=== PATIENT | female | born 1940 | race Caucasian/White ===

== ENCOUNTER 2022-04-01 12:42 | Outpatient (CLI) | payer MEDICARE, BC, SELFPAY ==
[2022-04-01 12:12] LABS: Abs Immature Grans 0.01 10^3/uL (0.0-0.06); Absolute Basophil Count 0.03 10^3/uL (0.0-0.2); Absolute Eosinophil Count 0.06 10^3/uL (0.0-0.7); Absolute Lymphocyte Count 0.33 10^3/uL (1.2-3.4); Absolute Monocyte Count 0.32 10^3/uL (0.1-0.8); Absolute Neutrophil Count 3.46 10^3/uL (1.2-6.7); Basophils % 0.7; Eosinophils % 1.4; HCT 28.8 % (36.0-46.0); HGB 9.1 g/dL (11.2-15.7); Immature Grans % 0.2; Lymphocytes % 7.8; MCH 26.8 pg (27.0-33.0); MCHC 31.6 % (32.0-36.0); MCV 85 fL (80-95); MPV 9.6 fL (8.0-11.0); Monocytes % 7.6; Neutrophils % 82.3; RBC 3.39 10^6/uL (3.93-5.22); RDW 15.3 % (11.7-14.6); RDW-SD 47.2 fL; WBC 4.21 10^3/uL (4.4-10.8)
[2022-04-01 12:18] LABS: Platelet Count 93 10^3/uL (130-400)
[2022-04-01 13:48] LABS: ALT 14 U/L (14-59); AST 27 U/L (15-37); Albumin 3.5 g/dL (3.4-5.0); Alkaline Phosphatase 116 U/L (46-116); BUN 12 mg/dL (7-18); Bilirubin, Total 0.9 mg/dL (0.2-1.0); CREATININE 0.9 mg/dL (0.55-1.02); Calcium 9.1 mg/dL (8.5-10.1); Chloride 95 mmol/L (98-107); Estimated GFR 65.03 (mL/min/1.73m2); Ferritin 70 ng/mL (8-252); Glucose 110 mg/dL (74-106); Potassium 3.5 mmol/L (3.5-5.1); Sodium 133 mmol/L (136-145); Total Protein 7.4 g/dL (6.4-8.2)
== END 2022-04-01 12:43 | disposition home or self-care (01) ==
LOC: LBO 12:56
PROVIDERS: Visit Provider Internal Medicine
DX: D50.0 Iron deficiency anemia secondary to blood loss (chronic) (principal); C67.9 Malignant neoplasm of bladder, unspecified
CPT/HCPCS: 36415; 80053; 82728; 85025

== ENCOUNTER 2022-04-15 12:12 | Outpatient (CLI) | payer MEDICARE, BC, SELFPAY ==
[2022-04-15 12:00] LABS: Abs Immature Grans 0.01 10^3/uL (0.0-0.06); Absolute Basophil Count 0.02 10^3/uL (0.0-0.2); Absolute Eosinophil Count 0.02 10^3/uL (0.0-0.7); Absolute Monocyte Count 0.39 10^3/uL (0.1-0.8); Basophils % 0.5; Eosinophils % 0.5; HCT 28.8 % (36.0-46.0); HGB 8.9 g/dL (11.2-15.7); Immature Grans % 0.2; Lymphocytes % 9.9; MCH 26.1 pg (27.0-33.0); MCHC 30.9 % (32.0-36.0); MCV 85 fL (80-95); Monocytes % 9.7; Neutrophils % 79.2; Platelet Count 102 10^3/uL (130-400); RBC 3.41 10^6/uL (3.93-5.22); RDW 15.6 % (11.7-14.6); RDW-SD 47.8 fL; WBC 4.04 10^3/uL (4.4-10.8)
[2022-04-15 12:27] LABS: ALT 13 U/L (14-59); AST 27 U/L (15-37); Albumin 3.5 g/dL (3.4-5.0); Alkaline Phosphatase 109 U/L (46-116); Anion Gap 6.3 mmol/L (3-11); BUN 19 mg/dL (7-18); Bilirubin, Total 0.8 mg/dL (0.2-1.0); CO2 32.7 mmol/L (21.0-32.0); CREATININE 0.9 mg/dL (0.55-1.02); Calcium 9.1 mg/dL (8.5-10.1); Chloride 98 mmol/L (98-107); Estimated GFR 65.03 (mL/min/1.73m2); Ferritin 66 ng/mL (8-252); Glucose 101 mg/dL (74-106); Potassium 3.9 mmol/L (3.5-5.1); Sodium 137 mmol/L (136-145); Total Protein 7.6 g/dL (6.4-8.2)
== END 2022-04-15 12:13 | disposition home or self-care (01) ==
LOC: LBO 12:17
PROVIDERS: Visit Provider Internal Medicine
DX: C67.9 Malignant neoplasm of bladder, unspecified (principal); D50.0 Iron deficiency anemia secondary to blood loss (chronic)
CPT/HCPCS: 36415; 80053; 82728; 85025

== ENCOUNTER 2022-04-18 00:58 | Outpatient (CLI) | payer MEDICARE, BC, SELFPAY ==
[2022-04-18 07:58] LABS: Abs Immature Grans 0.01 10^3/uL (0.0-0.06); Absolute Basophil Count 0.01 10^3/uL (0.0-0.2); Absolute Eosinophil Count 0.01 10^3/uL (0.0-0.7); Absolute Lymphocyte Count 0.22 10^3/uL (1.2-3.4); Absolute Monocyte Count 0.19 10^3/uL (0.1-0.8); Absolute Neutrophil Count 4.99 10^3/uL (1.2-6.7); Basophils % 0.2; Eosinophils % 0.2; HCT 28.4 % (36.0-46.0); HGB 8.8 g/dL (11.2-15.7); Immature Grans % 0.2; Lymphocytes % 4.1; MCH 25.5 pg (27.0-33.0); MCV 82 fL (80-95); MPV 9.4 fL (8.0-11.0); Monocytes % 3.5; Neutrophils % 91.8; RBC 3.45 10^6/uL (3.93-5.22); RDW 15.5 % (11.7-14.6); RDW-SD 46.8 fL; WBC 5.43 10^3/uL (4.4-10.8)
[2022-04-18 08:22] LABS: ALT 15 U/L (14-59); AST 27 U/L (15-37); Albumin 3.5 g/dL (3.4-5.0); Alkaline Phosphatase 106 U/L (46-116); Anion Gap 6.9 mmol/L (3-11); BUN 27 mg/dL (7-18); Bilirubin, Total 1.2 mg/dL (0.2-1.0); CO2 30.1 mmol/L (21.0-32.0); CREATININE 1.1 mg/dL (0.55-1.02); Calcium 8.8 mg/dL (8.5-10.1); Chloride 94 mmol/L (98-107); Estimated GFR 51.11 (mL/min/1.73m2); Glucose 115 mg/dL (74-106); Potassium 3.5 mmol/L (3.5-5.1); Sodium 131 mmol/L (136-145); Total Protein 7.6 g/dL (6.4-8.2)
[2022-04-18 08:26] LABS: Platelet Count 94 10^3/uL (130-400)
[2022-04-18 08:27] LABS: Diff Comment Diff Reviewed; RBC Morphology Normal
== END 2022-04-18 00:59 | disposition home or self-care (01) ==
LOC: LBO 00:58
PROVIDERS: Visit Provider Internal Medicine
DX: C67.9 Malignant neoplasm of bladder, unspecified (principal)
CPT/HCPCS: 36415; 80053; 85025

== ENCOUNTER 2022-04-22 02:05 | Outpatient (CLI) | payer MEDICARE, BC, SELFPAY ==
[2022-04-22 09:20] LABS: Abs Immature Grans 0.05 10^3/uL (0.0-0.06); Absolute Basophil Count 0.03 10^3/uL (0.0-0.2); Absolute Eosinophil Count 0.01 10^3/uL (0.0-0.7); Absolute Lymphocyte Count 0.21 10^3/uL (1.2-3.4); Absolute Monocyte Count 0.21 10^3/uL (0.1-0.8); Absolute Neutrophil Count 3.81 10^3/uL (1.2-6.7); Basophils % 0.7; Eosinophils % 0.2; HCT 27.8 % (36.0-46.0); HGB 8.7 g/dL (11.2-15.7); Immature Grans % 1.2; Lymphocytes % 4.9; MCHC 31.3 % (32.0-36.0); MCV 83 fL (80-95); MPV 9.4 fL (8.0-11.0); Monocytes % 4.9; Neutrophils % 88.1; RBC 3.34 10^6/uL (3.93-5.22); RDW 15.7 % (11.7-14.6); WBC 4.32 10^3/uL (4.4-10.8)
[2022-04-22 09:32] LABS: Diff Comment Diff Reviewed; Platelet Count 80 10^3/uL (130-400); RBC Morphology Normal
[2022-04-22 09:33] LABS: ALT 14 U/L (14-59); AST 26 U/L (15-37); Albumin 3.3 g/dL (3.4-5.0); Alkaline Phosphatase 115 U/L (46-116); Anion Gap 7.7 mmol/L (3-11); BUN 19 mg/dL (7-18); Bilirubin, Total 1.1 mg/dL (0.2-1.0); CO2 30.3 mmol/L (21.0-32.0); CREATININE 0.9 mg/dL (0.55-1.02); Calcium 8.8 mg/dL (8.5-10.1); Chloride 94 mmol/L (98-107); Estimated GFR 65.03 (mL/min/1.73m2); Glucose 112 mg/dL (74-106); Potassium 3.8 mmol/L (3.5-5.1); Sodium 132 mmol/L (136-145); Total Protein 7.6 g/dL (6.4-8.2)
== END 2022-04-22 02:06 | disposition home or self-care (01) ==
LOC: LBO 02:05
PROVIDERS: Visit Provider Internal Medicine
DX: C67.9 Malignant neoplasm of bladder, unspecified (principal)
CPT/HCPCS: 36415; 80053; 85025

== ENCOUNTER 2022-04-29 02:27 | Outpatient (CLI) | payer MEDICARE, BC, SELFPAY ==
[2022-04-29 09:45] LABS: Abs Immature Grans 0.01 10^3/uL (0.0-0.06); Absolute Basophil Count 0.01 10^3/uL (0.0-0.2); Absolute Eosinophil Count 0.02 10^3/uL (0.0-0.7); Absolute Lymphocyte Count 0.38 10^3/uL (1.2-3.4); Absolute Neutrophil Count 3.03 10^3/uL (1.2-6.7); Basophils % 0.3; Eosinophils % 0.5; HCT 28.4 % (36.0-46.0); Immature Grans % 0.3; Lymphocytes % 10.1; MCH 26.5 pg (27.0-33.0); MCHC 31.7 % (32.0-36.0); MCV 84 fL (80-95); MPV 9.2 fL (8.0-11.0); Neutrophils % 80.8; RBC 3.39 10^6/uL (3.93-5.22); RDW 18.6 % (11.7-14.6); RDW-SD 48.3 fL; WBC 3.75 10^3/uL (4.4-10.8)
[2022-04-29 10:01] LABS: ALT 18 U/L (14-59); AST 26 U/L (15-37); Albumin 3.5 g/dL (3.4-5.0); Alkaline Phosphatase 106 U/L (46-116); Anion Gap 6.3 mmol/L (3-11); BUN 21 mg/dL (7-18); Bilirubin, Total 1.3 mg/dL (0.2-1.0); CO2 34.7 mmol/L (21.0-32.0); CREATININE 1.2 mg/dL (0.55-1.02); Calcium 9.3 mg/dL (8.5-10.1); Chloride 96 mmol/L (98-107); Estimated GFR 46.05 (mL/min/1.73m2); Glucose 106 mg/dL (74-106); Sodium 137 mmol/L (136-145); Total Protein 7.7 g/dL (6.4-8.2)
[2022-04-29 10:12] LABS: Anisocytosis 1+; Diff Comment RBC Morph Reviewed; Platelet Count 50 10^3/uL (130-400); Polychromasia Present
== END 2022-04-29 02:28 | disposition home or self-care (01) ==
PROVIDERS: Visit Provider Internal Medicine
DX: C67.9 Malignant neoplasm of bladder, unspecified (principal)
CPT/HCPCS: 36415; 80053; 85025

== ENCOUNTER 2022-05-02 01:52 | Outpatient (CLI) | payer MEDICARE, BC, SELFPAY ==
[2022-05-02 09:43] LABS: Abs Immature Grans 0.01 10^3/uL (0.0-0.06); Absolute Basophil Count 0.02 10^3/uL (0.0-0.2); Absolute Eosinophil Count 0.03 10^3/uL (0.0-0.7); Absolute Lymphocyte Count 0.27 10^3/uL (1.2-3.4); Absolute Monocyte Count 0.41 10^3/uL (0.1-0.8); Absolute Neutrophil Count 3.08 10^3/uL (1.2-6.7); Basophils % 0.5; Eosinophils % 0.8; HCT 29.1 % (36.0-46.0); Immature Grans % 0.3; Lymphocytes % 7.1; MCH 26.5 pg (27.0-33.0); MCHC 30.9 % (32.0-36.0); MCV 86 fL (80-95); MPV 9.1 fL (8.0-11.0); Monocytes % 10.7; Neutrophils % 80.6; RBC 3.39 10^6/uL (3.93-5.22); RDW 20.5 % (11.7-14.6); RDW-SD 53.1 fL; WBC 3.82 10^3/uL (4.4-10.8)
[2022-05-02 09:53] LABS: Anisocytosis 2+; Diff Comment Diff Reviewed; Platelet Count 87 10^3/uL (130-400)
[2022-05-02 09:56] LABS: ALT 16 U/L (14-59); AST 23 U/L (15-37); Albumin 3.4 g/dL (3.4-5.0); Alkaline Phosphatase 107 U/L (46-116); Anion Gap 5.3 mmol/L (3-11); BUN 24 mg/dL (7-18); Bilirubin, Total 1.1 mg/dL (0.2-1.0); CO2 36.7 mmol/L (21.0-32.0); CREATININE 1.1 mg/dL (0.55-1.02); Calcium 9.2 mg/dL (8.5-10.1); Chloride 94 mmol/L (98-107); Estimated GFR 51.11 (mL/min/1.73m2); Glucose 105 mg/dL (74-106); Sodium 136 mmol/L (136-145); Total Protein 7.7 g/dL (6.4-8.2)
[2022-05-02 09:59] LABS: Potassium 2.8 mmol/L (3.5-5.1)
== END 2022-05-02 01:53 | disposition home or self-care (01) ==
LOC: LBO 01:52
PROVIDERS: Visit Provider Internal Medicine
DX: C67.9 Malignant neoplasm of bladder, unspecified (principal)
CPT/HCPCS: 36415; 80053; 85025

== ENCOUNTER 2022-05-06 03:28 | Outpatient (CLI) | payer MEDICARE, BC, SELFPAY ==
[2022-05-06 08:57] LABS: Abs Immature Grans 0.02 10^3/uL (0.0-0.06); Absolute Basophil Count 0.02 10^3/uL (0.0-0.2); Absolute Eosinophil Count 0.02 10^3/uL (0.0-0.7); Absolute Lymphocyte Count 0.28 10^3/uL (1.2-3.4); Absolute Monocyte Count 0.23 10^3/uL (0.1-0.8); Basophils % 0.5; Eosinophils % 0.5; HCT 28.1 % (36.0-46.0); HGB 8.8 g/dL (11.2-15.7); Immature Grans % 0.5; Lymphocytes % 7.5; MCH 27.1 pg (27.0-33.0); MCHC 31.3 % (32.0-36.0); MCV 87 fL (80-95); MPV 9.6 fL (8.0-11.0); Monocytes % 6.1; Neutrophils % 84.9; Platelet Count 140 10^3/uL (130-400); RBC 3.25 10^6/uL (3.93-5.22); RDW 21.1 % (11.7-14.6); RDW-SD 59.5 fL; WBC 3.74 10^3/uL (4.4-10.8)
[2022-05-06 09:01] LABS: Absolute Neutrophil Count 3.18 10^3/uL (1.2-6.7)
[2022-05-06 09:15] LABS: ALT 17 U/L (14-59); AST 23 U/L (15-37); Albumin 3.4 g/dL (3.4-5.0); Alkaline Phosphatase 115 U/L (46-116); Anion Gap 6.5 mmol/L (3-11); BUN 27 mg/dL (7-18); Bilirubin, Total 1.1 mg/dL (0.2-1.0); CO2 36.5 mmol/L (21.0-32.0); CREATININE 1.1 mg/dL (0.55-1.02); Chloride 93 mmol/L (98-107); Estimated GFR 51.11 (mL/min/1.73m2); Glucose 111 mg/dL (74-106); Sodium 136 mmol/L (136-145); Total Protein 7.7 g/dL (6.4-8.2)
[2022-05-06 09:17] LABS: Anisocytosis 2+; Diff Comment Diff Reviewed
[2022-05-06 09:18] LABS: Hypochromasia 2+; Poikilocytes 2+; Polychromasia Present
[2022-05-06 09:22] LABS: Potassium 2.7 mmol/L (3.5-5.1)
[2022-05-06 11:08] LABS: Ferritin 82 ng/mL (8-252)
== END 2022-05-06 03:29 | disposition home or self-care (01) ==
LOC: LBO 03:29
PROVIDERS: Nurse Practitioner Adult Health; Visit Provider Internal Medicine
DX: C67.9 Malignant neoplasm of bladder, unspecified (principal); E87.6 Hypokalemia; D64.9 Anemia, unspecified
CPT/HCPCS: 36415; 80053; 82728; 85025

== ENCOUNTER 2022-05-09 02:23 | Outpatient (CLI) | payer MEDICARE, BC, SELFPAY ==
[2022-05-09 09:51] LABS: Abs Immature Grans 0.02 10^3/uL (0.0-0.06); Absolute Basophil Count 0.01 10^3/uL (0.0-0.2); Absolute Eosinophil Count 0.04 10^3/uL (0.0-0.7); Absolute Lymphocyte Count 0.28 10^3/uL (1.2-3.4); Absolute Monocyte Count 0.23 10^3/uL (0.1-0.8); Absolute Neutrophil Count 3.13 10^3/uL (1.2-6.7); Basophils % 0.3; Eosinophils % 1.1; HCT 27.2 % (36.0-46.0); HGB 8.6 g/dL (11.2-15.7); Immature Grans % 0.5; Lymphocytes % 7.5; MCH 27.3 pg (27.0-33.0); MCHC 31.6 % (32.0-36.0); MCV 86 fL (80-95); MPV 9.8 fL (8.0-11.0); Monocytes % 6.2; Neutrophils % 84.4; Platelet Count 109 10^3/uL (130-400); RBC 3.15 10^6/uL (3.93-5.22); RDW 21.7 % (11.7-14.6); RDW-SD 61.2 fL; WBC 3.71 10^3/uL (4.4-10.8)
[2022-05-09 10:16] LABS: ALT 16 U/L (14-59); AST 24 U/L (15-37); Albumin 3.3 g/dL (3.4-5.0); Alkaline Phosphatase 113 U/L (46-116); Anion Gap 7.5 mmol/L (3-11); BUN 30 mg/dL (7-18); CO2 34.5 mmol/L (21.0-32.0); CREATININE 1.2 mg/dL (0.55-1.02); Calcium 8.8 mg/dL (8.5-10.1); Chloride 93 mmol/L (98-107); Estimated GFR 46.05 (mL/min/1.73m2); Ferritin 84 ng/mL (8-252); Glucose 114 mg/dL (74-106); Potassium 3.1 mmol/L (3.5-5.1); Sodium 135 mmol/L (136-145); Total Protein 7.6 g/dL (6.4-8.2)
== END 2022-05-09 02:24 | disposition home or self-care (01) ==
LOC: LBO 02:23
PROVIDERS: Visit Provider Internal Medicine
DX: C67.9 Malignant neoplasm of bladder, unspecified (principal); E87.6 Hypokalemia; D64.9 Anemia, unspecified
CPT/HCPCS: 36415; 80053; 82728; 85025

== ENCOUNTER 2022-05-13 02:21 | Outpatient (CLI) | payer MEDICARE, BC, SELFPAY ==
[2022-05-13 09:03] LABS: Abs Immature Grans 0.03 10^3/uL (0.0-0.06); Absolute Basophil Count 0.01 10^3/uL (0.0-0.2); Absolute Eosinophil Count 0.04 10^3/uL (0.0-0.7); Absolute Lymphocyte Count 0.24 10^3/uL (1.2-3.4); Absolute Monocyte Count 0.33 10^3/uL (0.1-0.8); Absolute Neutrophil Count 3.54 10^3/uL (1.2-6.7); Basophils % 0.2; HCT 27.5 % (36.0-46.0); HGB 8.7 g/dL (11.2-15.7); Immature Grans % 0.7; Lymphocytes % 5.7; MCH 27.4 pg (27.0-33.0); MCHC 31.6 % (32.0-36.0); MCV 87 fL (80-95); MPV 10.4 fL (8.0-11.0); Monocytes % 7.9; Neutrophils % 84.5; RBC 3.18 10^6/uL (3.93-5.22); RDW 22.6 % (11.7-14.6); RDW-SD 65.7 fL; WBC 4.19 10^3/uL (4.4-10.8)
[2022-05-13 09:26] LABS: ALT 16 U/L (14-59); AST 25 U/L (15-37); Albumin 3.1 g/dL (3.4-5.0); Alkaline Phosphatase 111 U/L (46-116); Anion Gap 8.1 mmol/L (3-11); BUN 24 mg/dL (7-18); Bilirubin, Total 1.1 mg/dL (0.2-1.0); CO2 35.9 mmol/L (21.0-32.0); CREATININE 1.1 mg/dL (0.55-1.02); Calcium 8.8 mg/dL (8.5-10.1); Chloride 92 mmol/L (98-107); Estimated GFR 51.11 (mL/min/1.73m2); Ferritin 89 ng/mL (8-252); Glucose 115 mg/dL (74-106); Sodium 136 mmol/L (136-145); Total Protein 7.5 g/dL (6.4-8.2)
[2022-05-13 09:27] LABS: Platelet Count 77 10^3/uL (130-400)
[2022-05-13 09:28] LABS: Diff Comment Diff Reviewed
[2022-05-13 09:29] LABS: Anisocytosis 2+; Hypochromasia 2+
[2022-05-13 09:30] LABS: Poikilocytes 2+
[2022-05-13 09:55] LABS: Potassium 2.7 mmol/L (3.5-5.1)
== END 2022-05-13 02:22 | disposition home or self-care (01) ==
LOC: LBO 02:21
PROVIDERS: Visit Provider Internal Medicine
DX: D64.9 Anemia, unspecified; E87.6 Hypokalemia; C67.9 Malignant neoplasm of bladder, unspecified
CPT/HCPCS: 36415; 80053; 82728; 85025